=== PATIENT | male | born 1985 | race Caucasian/White ===

== ENCOUNTER 2016-06-04 23:16 | Observation (INO) | payer MEDICAID ==
[~2016-06-04] VITALS: Ht 182.9 cm; Wt 105.5 kg
[2016-06-04] MEDS ORDERED: SODIUM CHLORIDE 0.9% 1,000 ML IV ONE (23:50)
[2016-06-05] MEDS ORDERED: SODIUM CHLORIDE FLUSH 10ML SYR IVF ONE
[2016-06-05] MEDS ORDERED: THIAMINE 100MG TABLET PO ONE
[2016-06-05] MEDS ORDERED: SODIUM CHLORIDE 0.9% 1,000ML IVBOLUS ONE
[2016-06-05] MEDS ORDERED: LORazepam 2 MG/ML, 1ML IVPush ONE
[2016-06-05] MEDS ORDERED: FOLIC ACID 1 MG TABLET PO ONE
[2016-06-05] MEDS ORDERED: ONDANSETRON 2MG/ML, 2ML ONE ×2 (00:02→08:30)
[2016-06-05] MEDS ORDERED: THIAMINE 100MG TABLET ONE (00:02)
[2016-06-05] MEDS ORDERED: LORazepam 2 MG/ML, 1ML ONE (00:03)
[2016-06-05 00:05] LABS: HEMOGLOBIN 17.4 g/dL (13.7-18.0)
[2016-06-05 00:18] LABS: BLOOD UREA NITROGEN 9 mg/dL (7-18)
[2016-06-05 00:30] LABS: ACETAMINOPHEN < 2 mcg/mL (10-30)
[2016-06-05] MEDS ORDERED: ONDANSETRON 2MG/ML, 2ML IVPush ONE ×2 (08:30)
[2016-06-05] MEDS ORDERED: LORazepam 1MG TABLET PO ONE (10:30)
[2016-06-05] MEDS ORDERED: LORazepam 1MG TABLET ONE ×2 (10:34→10:35)
[2016-06-05 10:49] LABS: DAU SCREEN DISCLAIMER
[2016-06-05] MEDS ORDERED: ONDANSETRON ODT 4 MG PO PRN (13:30)
[2016-06-05] MEDS ORDERED: BISACODYL 10 MG SUPP PR PRN (13:30)
[2016-06-05] MEDS ORDERED: DOCUSATE 100 MG CAPSULE PO PRN (13:30)
[2016-06-05] MEDS ORDERED: ACETAMINOPHEN 325 MG TABLET PO PRN (13:30)
[2016-06-05] MEDS ORDERED: POLYETHYLENE GLYCOL 17 GM PACKET PO PRN (13:30)
[2016-06-05] MEDS: LORazepam 1MG TABLET PO PRN ×4 (14:40→21:09)
[2016-06-05 15:30] VITALS: BP 150/102
[2016-06-05] MEDS ORDERED: LORazepam 2 MG/ML, 1ML IM PRN (15:30)
[2016-06-05] MEDS: NICOTINE 21 MG/24 HR PATCH.TD24 TD SCH (17:34)
[2016-06-05 19:42] VITALS: BP 154/99
[2016-06-05] MEDS: FLUOXETINE 10 MG CAP PO SCH (20:29)
[2016-06-05] MEDS: OLANZAPINE 2.5 MG TABLET PO SCH (20:29)
[2016-06-05] MEDS: BACLOFEN 10 MG TABLET PO SCH (20:29)
[2016-06-05] MEDS ORDERED: FLUOXETINE 20 MG/5 ML ORAL SOL PO SCH (21:00)
[2016-06-06 07:58] VITALS: BP 135/88
[2016-06-06] MEDS: MULTIVITAMIN 1 TABLET PO SCH (08:20)
[2016-06-06] MEDS: THIAMINE 100MG TABLET PO SCH (08:20)
[2016-06-06] MEDS: BACLOFEN 10 MG TABLET PO SCH ×2 (08:20→20:48)
[2016-06-06] MEDS: LORazepam 1MG TABLET PO PRN ×4 (08:21→22:19)
[2016-06-06] MEDS: NICOTINE 21 MG/24 HR PATCH.TD24 TD SCH (16:46)
[2016-06-06 19:39] VITALS: BP 148/82
[2016-06-06] MEDS: FLUOXETINE 10 MG CAP PO SCH (20:48)
[2016-06-06] MEDS: OLANZAPINE 2.5 MG TABLET PO SCH (20:49)
[2016-06-06 23:17] VITALS: BP 132/82
[2016-06-07 08:02] VITALS: BP 131/68
[2016-06-07] MEDS: THIAMINE 100MG TABLET PO SCH (08:32)
[2016-06-07] MEDS: BACLOFEN 10 MG TABLET PO SCH ×2 (08:32→20:53)
[2016-06-07] MEDS: MULTIVITAMIN 1 TABLET PO SCH (08:32)
[2016-06-07] MEDS: LORazepam 1MG TABLET PO PRN ×4 (08:39→20:53)
[2016-06-07 13:11] VITALS: BP 152/83
[2016-06-07] MEDS: NICOTINE 21 MG/24 HR PATCH.TD24 TD SCH (18:05)
[2016-06-07 19:29] VITALS: BP 171/83
[2016-06-07] MEDS: OLANZAPINE 2.5 MG TABLET PO SCH (20:53)
[2016-06-07] MEDS: FLUOXETINE 10 MG CAP PO SCH (20:53)
[2016-06-08 07:47] VITALS: BP 121/83
[2016-06-08] MEDS ORDERED: MULT1TAB60 PO (08:03)
[2016-06-08] MEDS ORDERED: BACL-19 PO (08:03)
[2016-06-08] MEDS ORDERED: FLUO10CA7 PO (08:03)
[2016-06-08] MEDS ORDERED: LORA-446 PO (08:03)
[2016-06-08] MEDS ORDERED: OLAN2.5T5 PO (08:03)
[2016-06-08] MEDS ORDERED: THIA100T6 PO (08:03)
[2016-06-08] MEDS ORDERED: NICO1PAT5 TD (08:03)
[2016-06-08] MEDS: MULTIVITAMIN 1 TABLET PO SCH (08:15)
[2016-06-08] MEDS: THIAMINE 100MG TABLET PO SCH (08:15)
[2016-06-08] MEDS: BACLOFEN 10 MG TABLET PO SCH (08:15)
== END 2016-06-08 09:00 ==
LOC: ED 06-05 07:51 → EDIP 06-05 12:58 → SUATTDRO 06-05 13:03 → 3E 06-05 13:48
PROVIDERS: ADMIT Internal Medicine; ATTEND Internal Medicine
DX: R45.851 Suicidal ideations (principal); I10 Essential (primary) hypertension; F32.9 Major depressive disorder, single episode, unspecified; F41.9 Anxiety disorder, unspecified; F17.200 Nicotine dependence, unspecified, uncomplicated; F10.20 Alcohol dependence, uncomplicated
CPT/HCPCS: 36415; 80048; 80307; 80329; 82040; 85025; 93005; 96361; 96374; 96375; 96376; 99285; G0378; J2060; J2405; J7030; Q0162; G0480